=== PATIENT | female | born 1995 | race Caucasian/White ===

== ENCOUNTER 2018-07-07 19:06 | Emergency (ER) | payer OTHER ==
[~2018-07-07] VITALS: Ht 165.1 cm; Wt 58.7 kg
[2018-07-07 19:51] LABS: BASO % 0.5 % (0.0-1.0); HEMATOCRIT 33.3 % (36.0-47.0); HEMOGLOBIN 11.4 g/dl (12.0-15.5); LYMPH % 30.5 % (24.0-44.0); MEAN CORPUSCULAR HEMOGLOBIN 29.4 pg (27.0-33.0); MEAN CORPUSCULAR HGB CONC 34.2 g/dl (32.0-36.5); MEAN CORPUSCULAR VOLUME 85.8 fl (80.0-96.0); MONO # 0.6 10^3/uL (0.0-0.8); MONO % 8.6 % (0.0-5.0); NEUTROPHILS # 3.8 10^3/uL (1.8-7.7); NEUTROPHILS % 60.1 % (36.0-66.0); PLATELET COUNT, AUTOMATED 281 10^3/uL (150-450); RED BLOOD COUNT 3.88 10^6/uL (4.00-5.40); WHITE BLOOD COUNT 6.4 10^3/uL (4.0-10.0)
--- NOTE | 2018-07-07 20:32 | REP ---
Clinical: Dating and viability. Technique: Transabdominal first trimester obstetrical ultrasound with color Doppler evaluation Findings: Single live early intrauterine is appreciated. Gestational sac with yolk sac and pole identified. [place]-rump length of 3.3 cm corresponds to 10 weeks 1 day gestational age with estimated date of delivery 02/01/2019 . heart rate equals 182 beats per minute. A large subchorionic hemorrhage is identified measuring approximately 7.8 x 6.3 x 2.4 cm Maternal ovaries are normal and 1.7 cm right corpus luteal cyst is identified. Impression: 1. Single live early intrauterine at 10 weeks 1 day gestational age. Complete anatomical assessment should be performed and 19-20 weeks. 2. Large subchorionic hemorrhage noted. Electronically Signed by Rome Wilson MD 07/07/2018 08:23 P
[2018-07-07] MEDS ORDERED: RHOGAM 300 MCG (1500 IU) INJ (J2790) IM ONE (21:00)
[2018-07-07 21:23] VITALS: BP 102/51
[2018-07-07 22:13] LABS: CHLAMYDIA DNA AMPLIFICATION NEGATIVE (NEGATIVE); GC DNA AMPLIFICATION NEGATIVE (NEGATIVE)
== END 2018-07-07 22:43 | disposition home or self-care (01) ==
LOC: M ED 19:06
DX: O20.0 Threatened abortion (principal); O20.8 Other hemorrhage in early pregnancy; Z72.0 Tobacco use; Z3A.10 10 weeks gestation of pregnancy
CPT/HCPCS: 36415; 76801; 81001; 84702; 85025; 85460; 86850; 86900; 86901; 87210; 87491; 87591; 96372; 99284; J2790

== ENCOUNTER 2018-07-08 10:22 | Day surgery (SDC) | payer OTHER ==
[2018-07-08] MEDS ORDERED: NS 1,000 ML IV ONE (10:45)
[2018-07-08 11:08] LABS: BASO % 0.2 % (0.0-1.0); HEMATOCRIT 30.6 % (36.0-47.0); HEMOGLOBIN 10.2 g/dl (12.0-15.5); LYMPH # 2.2 10^3/uL (1.5-6.5); LYMPH % 20.7 % (24.0-44.0); MEAN CORPUSCULAR HEMOGLOBIN 28.5 pg (27.0-33.0); MEAN CORPUSCULAR HGB CONC 33.3 g/dl (32.0-36.5); MEAN CORPUSCULAR VOLUME 85.5 fl (80.0-96.0); MONO # 0.9 10^3/uL (0.0-0.8); MONO % 8.2 % (0.0-5.0); NEUTROPHILS # 7.4 10^3/uL (1.8-7.7); NEUTROPHILS % 70.6 % (36.0-66.0); PLATELET COUNT, AUTOMATED 305 10^3/uL (150-450); RED BLOOD COUNT 3.58 10^6/uL (4.00-5.40); WHITE BLOOD COUNT 10.4 10^3/uL (4.0-10.0)
--- NOTE | 2018-07-08 11:16 | REP ---
Clinical: Vaginal bleeding. Technique: Transabdominal first trimester obstetrical ultrasound with color Doppler evaluation. Comparison: 07/07/2018. Findings: The previously identified viable 10-week fetus is no longer apparent and the endometrial complex is distended with heterogeneous hemorrhagic material consistent with spontaneous in progress. Uterus measures 10.4 x 6.5 x 7.8 cm. Endometrial complex is distended to 4.7 mm. The bilateral ovaries are normal in appearance and vascularity without torsion. Right ovary measures 3.6 x 2.2 x 3.7 cm and includes 2.2 cm corpus luteum. Left ovary measures 1.8 x 1.7 x 1.6 cm. No significant pelvic free fluid. Findings: Findings consistent with spontaneous in progress. Electronically Signed by Rome Wilson MD 07/08/2018 11:08 A
[2018-07-08 11:52] LABS: BLOOD UREA NITROGEN 8 MG/DL (7-18); CALCIUM LEVEL 8.5 MG/DL (8.5-10.1); CARBON DIOXIDE LEVEL 24 MEQ/L (21-32); CHLORIDE LEVEL 106 MEQ/L (98-107); CREATININE FOR GFR 0.62 MG/DL (0.55-1.30); GLOMERULAR FILTRATION RATE > 60.0 (>60); GLUCOSE, FASTING 87 MG/DL (70-100); HCG, SERUM QUANTITATIVE 61626 MIU/ML; POTASSIUM SERUM 3.9 MEQ/L (3.5-5.1); SODIUM LEVEL 139 MEQ/L (136-145)
[2018-07-08] MEDS ORDERED: DOXYCYCLINE HYCLATE 100 MG in D5W MINI-BAG PLUS 100 ML IV ONE (12:15)
[2018-07-08] MEDS ORDERED: DOXYCYCLINE HYCLATE 100 MG/10 ML VIAL As Ordered ONE ×2 (12:24→14:20)
[2018-07-08] MEDS ORDERED: LIDOCAINE 2% INJ 100 MG/5 ML SDV (FOR ANES.) As Ordered ONE (13:46)
[2018-07-08] MEDS ORDERED: PROPOFOL 200 MG/20 ML VIAL As Ordered ONE ×2 (13:46→15:04)
[2018-07-08] MEDS ORDERED: ONDANSETRON 4MG/2ML VIAL (J2405) As Ordered ONE (13:47)
[2018-07-08] MEDS ORDERED: dexameTHASONE 4 MG/ML 1ML VIAL (J1100) As Ordered ONE (13:47)
[2018-07-08] MEDS ORDERED: KETOROLAC 60 MG/2 ML VIAL (J1885) As Ordered ONE (13:47)
[2018-07-08] MEDS ORDERED: MIDAZOLAM INJ 2 MG/2 ML VIAL (J2250) As Ordered ONE (13:48)
[2018-07-08] MEDS ORDERED: fentaNYL 100 MCG/2 ML INJECTION (J3010) As Ordered ONE (13:48)
[2018-07-08] MEDS ORDERED: LIDOCAINE 1% MDV 20ML VIAL As Ordered ONE (14:20)
[2018-07-08] MEDS ORDERED: DOXYCYCLINE HYCLATE 100 MG in D5W MINI-BAG PLUS 100 ML IV SCH (15:00)
[2018-07-08] MEDS ORDERED: fentaNYL 100 MCG/2 ML INJECTION (J3010) IV PRN (16:00)
[2018-07-08] MEDS ORDERED: METOCLOPRAMIDE INJ 10MG/2ML VIAL (J2765) IV PRN (16:00)
[2018-07-08] MEDS ORDERED: LR 1,000 ML IV SCH (16:00)
[2018-07-08] MEDS ORDERED: ONDANSETRON 4MG/2ML VIAL (J2405) IV PRN (16:00)
[2018-07-08] MEDS ORDERED: MEPERIDINE INJ 25 MG/ML VIAL (J2175) IV PRN (16:00)
[2018-07-08] MEDS ORDERED: PERCOCET 5MG/325MG TAB PO PRN ×2 (16:00)
[2018-07-08 16:30] VITALS: BP 104/58
[2018-07-08 17:00] VITALS: BP 100/59
[2018-07-08 17:30] VITALS: BP 129/78
[2018-07-08 18:10] VITALS: BP 120/72
--- NOTE | 2018-07-10 08:06 | RO ---
DATE OF PROCEDURE: 07/08/2018 PREPROCEDURE DIAGNOSIS: Incomplete . POSTPROCEDURE DIAGNOSIS: Incomplete status post suction, dilation and curettage. PROCEDURE: Suction dilation and curettage. SURGEON: Dr. Mitch Segundo. PROFESSOR OF RELIGION: None. ANESTHESIA: Monitored anesthesia care (MAC). FLUIDS: 600 mL lactated Ringers. URINE OUTPUT: 3 mL via straight catheter. ESTIMATED BLOOD LOSS: 50 mL. COMPLICATION: None. ANTIBIOTICS: 100 mg doxycycline before procedure and 200 mg doxycycline after procedure. INDICATION: Buffy is a 23-year-old G4, P2 female at approximately 10 weeks gestation who presented to the emergency room yesterday evening with vaginal bleeding in the setting of . An ultrasound at that time revealed a [id number]-pmcae viable intrauterine , but also a large 7.5 cm subchorionic hemorrhage. She was discharged with return precautions. She presented back to the emergency room this morning with acute hemorrhage and partial passage of products of conception. Upon my examination in the emergency room, she was found to have an incomplete and I was unable to remove the remaining products of conception in the emergency room at the bedside. She was then counseled and consented for suction dilation and curettage and she agreed to proceed. DESCRIPTION OF PROCEDURE: The risks benefits, indications and alternatives to the procedure were reviewed with the patient and informed consent was obtained. The patient was taken to the operating room where IV sedation was obtained without difficulty. The patient was then placed in the lithotomy position using Edy stirrups. An exam under anesthesia was then performed and was significant for a midline mobile 10-week size uterus. The patient was then prepped and draped in the usual sterile fashion. The bladder was drained using and in-and-out catheter. A sterile speculum was placed in the patient's vagina and the cervix was visualized. A paracervical block was then performed using approximately 10 mL of 1% lidocaine plain. A tenaculum was used to grasped the anterior lip of the cervix. No dilation of the cervix was required as it was already dilated. A 9 mm curved suction catheter was then introduced into the uterine cavity and gently advanced the uterine fundus. The suction was then activated to 60 mmHg and the catheter was rotated to clear the uterus of products of conception. Four passes were performed with a moderate amount of tissue obtained. A gentle sharp curettage was then performed until uterine cri was noted in all planes. Two more passes of the suction catheter were then performed and minimal tissue was obtained. All tissue obtained and sent to pathology for review. The tenaculum was then removed from the anterior lip of the cervix and the sites were noted to be hemostatic. All instruments were then removed from the patient's vagina. The patient tolerated the procedure well. A vaginal sweep was performed and confirmed that no retained foreign objects remained in the vagina. At the completion of the case, sponge, instrument and needle counts were correct times two. Patient tolerated the procedure well and was taken to the postanesthesia care unit (PACU) in stable condition. JEROME
== END 2018-07-08 18:40 | disposition home or self-care (01) ==
LOC: M ED 10:22 → EDBD 10:22 → M SDC 11:50 → M PED 16:20 → M SDC 18:40
PROVIDERS: ATTEND Obstetrics & Gynecology
DX: O02.1 Missed abortion (principal); F17.210 Nicotine dependence, cigarettes, uncomplicated
CPT/HCPCS: 59820; 76801; 80048; 84702; 85025; 86850; 86870; 86900; 86901; 88233; 88262; 88291; 88305; 93976; 96361; 96365; 96366; 99285; J1100; J1885; J2250; J2405; J3010

== ENCOUNTER 2018-09-11 13:37 | Inpatient (IN) | payer OTHER ==
[~2018-09-11] VITALS: Ht 165.1 cm; Wt 56.2 kg
[2018-09-11 16:13] LABS: HEMATOCRIT 34.7 % (36.0-47.0); HEMOGLOBIN 10.5 g/dl (12.0-15.5); MEAN CORPUSCULAR HEMOGLOBIN 24.2 pg (27.0-33.0); MEAN CORPUSCULAR HGB CONC 30.3 g/dl (32.0-36.5); PLATELET COUNT, AUTOMATED 292 10^3/uL (150-450); RED BLOOD COUNT 4.34 10^6/uL (4.00-5.40); WHITE BLOOD COUNT 3.7 10^3/uL (4.0-10.0)
[2018-09-11 16:37] LABS: AMPHETAMINES LEVEL URINE NEGATIVE (NEGATIVE); BARBITURATES URINE NEGATIVE (NEGATIVE); BENZODIAZEPINES URINE NEGATIVE (NEGATIVE); CANNABINOIDS URINE NEGATIVE (NEGATIVE); COCAINE METABOLITE URINE NEGATIVE (NEGATIVE); METHADONE URINE NEGATIVE (NEGATIVE); OPIATES URINE NEGATIVE (NEGATIVE); PHENCYCLIDINE URINE NEGATIVE (NEGATIVE)
[2018-09-11 16:45] LABS: HCG, SERUM QUALITATIVE NEGATIVE (NEGATIVE)
[2018-09-11 16:53] LABS: ACETAMINOPHEN LEVEL < 2.0 UG/ML (10.0-30.0); ALBUMIN 4.4 GM/DL (3.2-5.2); ALT/SGPT 18 U/L (12-78); BILIRUBIN,DIRECT 0.1 MG/DL (0.0-0.2); BILIRUBIN,TOTAL 0.2 MG/DL (0.2-1.0); BLOOD UREA NITROGEN 12 MG/DL (7-18); CARBON DIOXIDE LEVEL 27 MEQ/L (21-32); CHLORIDE LEVEL 107 MEQ/L (98-107); ETHYL ALCOHOL (ETHANOL) < 0.003 % (0.000-0.010); GLOMERULAR FILTRATION RATE > 60.0 (>60); GLUCOSE, FASTING 98 MG/DL (70-100); SALICYLATE LEVEL 2.5 MG/DL (5.0-30.0); SODIUM LEVEL 139 MEQ/L (136-145); TOTAL PROTEIN 8.7 GM/DL (6.4-8.2)
[2018-09-11] MEDS ORDERED: MOM 30ML SUSPENSION UDC PO PRN (21:15)
[2018-09-11] MEDS ORDERED: ACETAMINOPHEN TAB 650MG DOSE (2X325MG) PO PRN (21:15)
[2018-09-11] MEDS ORDERED: MAALOX 30 ML SUSP *UDC PO PRN (21:15)
[2018-09-11 23:56] VITALS: BP 134/70
[2018-09-12] MEDS ORDERED: SERTRALINE HCL 25 MG TABLET PO ONE (13:00)
--- NOTE | 2018-09-12 13:13 | HPEPDOC ---
General Date of Admission Sep 11, 2018 at 21:07 Date of Service: Sep 12, 2018 Attending Physician: RONNIE BENITEZ MD Chief Complaint The patient is a 23-year-old female admitted with a reason for visit of Unspecified Depressive Disorder. History of Present Illness Natalie Baer is a 23-year-old female referred to the emergency room after patient presented to the clinic requesting admission to mental health. Patient expressed suicidal ideation with no specific plan. Due to some ongoing marital problems with spouse. On assessment, she complains of chest pain which started yesterday and she attributes to anxiety. Describes as intermittent, worsened whenever she is feeling anxious, denies shortness of breath. She also complains of back pain and abdominal pain. She is on her monthly menstrual period She denies chills, fever, nausea, vomiting, diarrhea, constipation. Home Medications No Active Prescriptions or Reported Meds Allergies Coded Allergies: lavender (Lavandula angustifolia) (Verified Allergy, Unknown, hives, 07/08/18) Past Medical History Medical History Anemia Anxiety Surgical History D&C Family History Significant Family History: No pertinent family hx Social History Denies tobacco, occasional alcohol use, denies polysubstance abuse A-FIB/CHADSVASC A-FIB History Current/History of A-Fib/PAF?: No Current PO Anticoag Therapy: No Review of Systems Other systems A pertinent 10 point review of systems is completed, negative except as stated in the history of presenting illness Physical Examination Other physical findings GENERAL: NAD SKIN : Warm, dry intact HEENT: Atraumatic, normocephalic, PERRL, moist mucous membrane CARDIOVASCULAR: Regular rate and rhythm, S1S2, no JVD, no edema, distal pulses + palpable RESP: CTAB, no accessory muscle use noted ABDOMEN: BS+ non distended +tender MS: no joint deformities NEURO: Alert and oriented x 3, CN2-12 grossly intact PSYCH: no anxiety or agitation, appropriate mood and affect. Vital Signs Vital Signs Date Time Temp Pulse Resp B/P (MAP) Pulse Ox O2 Delivery O2 Flow Rate FiO2 09/11/18 23:56 97.2 88 16 134/70 (91) 09/11/18 22:58 100 Room Air Laboratory Data Labs 24H Laboratory Tests 2 09/11/18 15:32: Anion Gap 5L, Glomerular Filtration Rate > 60.0, Calcium Level 10.0, Aspartate Amino Transf (AST/SGOT) 12, Alanine Aminotransferase (ALT/SGPT) 18, Alkaline Phosphatase 70, Total Bilirubin 0.2, Direct Bilirubin 0.1, Total Protein 8.7H, Albumin 4.4, Albumin/Globulin Ratio 1.02, Thyroid Stimulating Hormone (TSH) 2.840, Human Chorionic Gonadotropin, Qual NEGATIVE, Salicylates Level 2.5L, Urine Amphetamines Screen NEGATIVE, Urine Benzodiazepines Screen NEGATIVE, Urine Opiates Screen NEGATIVE, Urine Methadone Screen NEGATIVE, Acetaminophen Level < 2.0L, Urine Barbiturates Screen NEGATIVE, Urine Phencyclidine Screen NEGATIVE, Urine Cocaine Metabolite Screen NEGATIVE, Urine Cannabinoids Screen NEGATIVE, Ethyl Alcohol Level < 0.003 CBC/BMP Laboratory Tests 09/11/18 15:32 Assessment/Plan Anemia -Chronic for patient -Stable Chest pain with anxiety -Patient states chest pain is due to anxiety -Check cardiac biomarkers, 12-lead EKG, chest x-ray -Reevaluate with findings Suicidal ideation -Evaluation and management per primary team Plan / VTE VTE Prophylaxis Ordered?: No VTE Exclusion Mechanical Proph: Low Risk for VTE SINDY GARCIAP Sep 12, 2018 13:13
--- NOTE | 2018-09-12 17:16 | MHHPEPDOC ---
[facility] History & Physical History and Physical DATE OF ADMISSION: Sep 11, 2018 at 21:07 Date of Service: 09/12/2018 Chief Complaint "I hate people." History of Present Illness The patient a 23 year old woman with a history of depression and possible antisocial traits presents to [facility] on her own volition stating that she is suicidal. 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 She recently had a miscarriage in July and her depression worsened. She only received one week of time with her after the miscarriage and did not adapt well. She was prescribed sertraline at that time, but neglected to take it after she left the hospital. The patient when met with describes irritability, low mood, hopelessness, suicidal thoughts, concentration/focus problems, fatigue and an inability to tend to her needs. Review Of Systems Depression: As above Anxiety: The patient denies any excessive worry associated with physical symptoms. They deny any experience of discreet panic in the past. Bonny: The patient denies any episodes of euphoria/dysphoria associated with decreased need for sleep, hedonism, talkatively or impulsivity lasting longer than 5 days. Psychotic: The patient denies any experiences of auditory or visual hallucinations. They deny any episodes of paranoia or delusional thinking in the past Trauma: The patient denies any traumatic events associated with nightmares or intrusive thoughts. Borderline: Positive screen for borderline antisocial traits. Past Psychiatric History Patient has a history of one admission five years ago in the [facility] for a suicide attempt. Only been tried on sertraline. No other diagnosis or treatment. No current out-patient. Allergies Please see below. Family Psychiatric History The patient denies/is unaware any history of mental health history including addictions and suicide. Social History Patient grew up in the [place], [place]. She reported a fairly chaotic family life where she was raised by her mother. She notably had difficulties with her brother and although denies specific abuse. She graduated high school after a fairly turbulent childhood where she was in and out of juvenile half-way for fighting and assault. She additionally then met her who she's known for several years and they got recently , and he deployed. She currently lives alone. They have one child together of which she finds difficult to take care of. She currently does not work and subsist on income from her . She describes she currently cannot drive which is a significant stressor due to not having a license. Reports no recent legal trouble. Substance Abuse History The patient denies any excessive alcohol use, tobacco or illicit drug use, denies history of substance use treatment. Medical History Patient has no significant past medical history. Mental Status Examination General: Well dressed with good hygiene Speech: Spontaneous and fluid Thought processes: Linear and logical MSK: Smooth and coordinated gait, no signs of tremors or involuntary orofacial movements Thought content: Preoccupation with hopelessness and pessimism Abstract reasoning, and computation: Intact Description of associations: Intact Description of abnormal or psychotic thoughts: Admits to suicidal thoughts, but denies any homicidal thoughts. Denies any auditory or visual hallucinations. Does not appear to be responding to internal stimuli. Does not appear to be endorsing any bizarre or paranoid ideation. Judgment: Limited insight Insight: fair Orientation: Alert and orientated 3 Cognition: Grossly normal Recent and remote memory: Intact Attention span and concentration: Intact Fund of knowledge: Adequate Mood: "fine" Affect: Mildly irritable Diagnoses Unspecified depressive disorder. Rule out adjustment versus MDD. Unspecified personality disorder. Rule out borderline versus antisocial. Assessment and Plan The patient a 23 year old woman with a history of depression and likely antisocial borderline traits presents with suicidal thoughts not connected to mental health. She reportedly wanted to come in for admission and has been admitted. She does appear generally demanding on the unit and asked specifically of whether her should be returned to support her. Although the recommendation is this would be ideal as a patient appears to be unlikely to support herself. She does appear to be very demanding and manipulative at times. Disposition Patient will need an in-patient admission likely longer than 2 midnight's in order to stabilize her suicidal thoughts and depression. Problem List 1. Risk for suicide 2. Depression 3. Ineffective coping Initial Treatment Plan 1. Patient was admitted on a 9.39 legal status. 2. Complete history was obtained. 3. With patients permission, family will be contacted and database will be expanded. 4. Patients medication regimen will be reviewed and changed accordingly. 5. Patient will be provided with protected environment. 6. Patient will be treated with individual, group, and milieu therapies. 7. Patient will receive supportive psych-education. 8. Discharge planning will commence immediately. 9. Outpatient follow-up treatment will be strongly recommended. 10. The initial treatment plan will focus initially on sertraline 25 mg daily. Discussed risk, benefits of sertraline and possible side effects. Estimated Length Of Stay Four days. Time Spent 45 minutes. Tuesday Vital Signs Vital Signs Date Time Temp Pulse Resp B/P (MAP) Pulse Ox O2 Delivery O2 Flow Rate FiO2 09/11/18 23:56 97.2 88 16 134/70 (91) 09/11/18 22:58 100 Room Air Laboratory Data 24H Labs Laboratory Tests 2 09/12/18 13:32: Troponin I < 0.02 Medications No Active Prescriptions or Reported Meds Allergies Coded Allergies: lavender (Lavandula angustifolia) (Verified Allergy, Unknown, hives, 07/08/18) ALEX CARBAJAL DO Sep 12, 2018 17:16
[2018-09-12 18:00] VITALS: BP 102/70
--- NOTE | 2018-09-12 19:52 | REP ---
CHEST: Two views. There is no evidence of acute infiltrate. No pleural effusion is seen. The heart is normal in size. The mediastinal silhouette is unremarkable. The visualized osseous structures are intact. IMPRESSION: No acute pulmonary disease. Electronically Signed by Tristin Ball MD 09/14/2018 12:08 A
[2018-09-12] MEDS: traZODone 50 MG TAB PO PRN (21:42)
[2018-09-13 06:30] VITALS: BP 104/54
--- NOTE | 2018-09-13 08:54 | IPNPDOC ---
Text Note Date of Service The patient was seen on 09/13/18. NOTE Subjective: denies chest pain today. Test results discussed with her. Objective GENERAL: NAD SKIN : Warm, dry intact HEENT: Atraumatic, normocephalic, PERRL, moist mucous membrane CARDIOVASCULAR: Regular rate and rhythm, S1S2, no JVD, no edema, distal pulses + palpable RESP: CTAB, no accessory muscle use noted ABDOMEN: BS+ non distended +tender MS: no joint deformities NEURO: Alert and oriented x 3, CN2-12 grossly intact PSYCH: no anxiety or agitation, appropriate mood and affect. Assessment/Plan Anemia -Chronic for patient -Stable Chest pain with anxiety -chest pain likely due to anxiety based on resolution of symptoms with treatment of anxiety -findings discussed with her -will start on short term PPI Suicidal ideation -Evaluation and management per primary team VS,Octavia, I+O VS, Octavia, I+O Vital Signs Date Time Temp Pulse Resp B/P (MAP) Pulse Ox O2 Delivery O2 Flow Rate FiO2 09/13/18 06:30 98.5 48 12 104/54 (71) 09/11/18 22:58 100 Room Air SINDY GARICA Sep 13, 2018 08:54
[2018-09-13] MEDS ORDERED: SERTRALINE HCL 25 MG TABLET PO SCH (09:00)
[2018-09-13] MEDS: PANTOPRAZOLE 40MG TAB (PROTONIX) PO SCH (09:00)
--- NOTE | 2018-09-13 10:50 | MHIPNPDOC ---
[facility] Progress Note Progress Note Date of Service: 09/13/2018 History of Present Illness The patient a 23 year old woman with a history of depression and possible antisocial traits presents to [facility] on her own volition stating that she is suicidal. 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 She recently had a miscarriage in July and her depression worsened. She only received one week of time with her after the miscarriage and did not adapt well. She was prescribed sertraline at that time, but neglected to take it after she left the hospital. Interval History The patient is met with today. 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 She describes her mood is improving and her eating and sleeping have begun to normalize on the unit secondary to a more supportive environment. She describes being upset and meets with this provider for a second time feeling upset that the is ambivalent about bringing her back from deployment in order to be supportive for her. Staff noted no major problems other than at times she can be somewhat petulant but no behavior outburst are noted overnight. She reports that she feels ready to return home tomorrow as she is worried about her daughter and has been unable to connect with her current sitter. Review Of Systems Denies any side effects such as GI effects, tremors, headaches, or other problems related to medications. Reports improved mood, improved sleep, improved appetite and better motivation. Psychotherapy None on this visit. Vital Signs Reviewed. Mental Status Examination General: Well dressed with good hygiene Speech: Spontaneous and fluid Thought processes: Linear and logical MSK: Smooth and coordinated gait, no signs of tremors or involuntary orofacial movements Thought content: Being upset with . Abstract reasoning, and computation: Intact Description of associations: Intact Description of abnormal or psychotic thoughts: Denies suicidal thoughts at this time, but denies any homicidal thoughts. Denies any auditory or visual hallucinations. Does not appear to be responding to internal stimuli. Does not appear to be endorsing any bizarre or paranoid ideation. Judgment: Chronically limited. Insight: Fair. Orientation: Alert and orientated 3 Cognition: Grossly normal Recent and remote memory: Intact Attention span and concentration: Intact Fund of knowledge: Adequate Mood: "fine" Affect: Euthymic. Diagnoses Unspecified depressive disorder. Rule out adjustment versus MDD. Unspecified personality disorder. Rule out borderline versus antisocial. Assessment and Plan The patient will be increased to 50 mg of sertraline with a discharge tomorrow. She makes significant improvement with the supportive environment. She would do well with her being supportive of her as she generally has poor coping skills as an outpatient. However, the will need to make their own choice regarding this. Disposition Discharged tomorrow. Time Spent 15 minutes [id number]. Tuesday Vital Signs Vital Signs Date Time Temp Pulse Resp B/P (MAP) Pulse Ox O2 Delivery O2 Flow Rate FiO2 09/13/18 06:30 98.5 48 12 104/54 (71) 09/11/18 22:58 100 Room Air Laboratory Data 24H Labs Laboratory Tests 2 09/12/18 13:32: Troponin I < 0.02 Current Medications Current Medications Medications (Trade) Dose Ordered Sig/Yue Route PRN Reason Start Time Stop Time Status Last Admin Dose Admin Acetaminophen (Tylenol Tab) 650 mg Q6HP PRN PO HEADACHE or DISCOMFORT 09/11/18 21:15 Al Hydrox/Mg Hydrox/Simethicone (Mylanta) 30 ml Q4HP PRN PO HEARTBURN/INDIGESTION 09/11/18 21:15 Home Med (Med Rec Complete!) ASDIRECTED XX 09/11/18 17:30 09/11/18 17:30 DC Magnesium Hydroxide (Milk Of Magnesia) 30 ml DAILYPRN PRN PO CONSTIPATION 09/11/18 21:15 Pantoprazole Sodium (Protonix) 40 mg DAILY PO 09/13/18 09:00 Sertraline HCl (Zoloft) 25 mg DAILY PO 09/13/18 09:00 09/13/18 08:44 Trazodone HCl (Desyrel) 50 mg QHSP PRN PO INSOMNIA 09/11/18 21:15 09/12/18 21:42 Allergies Coded Allergies: lavender (Lavandula angustifolia) (Verified Allergy, Unknown, hives, 07/08/18) ALEX CARBAJAL DO Sep 13, 2018 10:50
[2018-09-13 18:00] VITALS: BP 102/58
[2018-09-13] MEDS: traZODone 50 MG TAB PO PRN (20:39)
[2018-09-14 06:18] VITALS: BP 98/57
--- NOTE | 2018-09-14 08:29 | ECGEPIP ---
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
[2018-09-14] MEDS ORDERED: SERTRALINE HCL 50 MG TAB PO SCH (09:00)
[2018-09-14] MEDS: PANTOPRAZOLE 40MG TAB (PROTONIX) PO SCH (09:05)
[2018-09-14] MEDS ORDERED: SERT-155 PO (10:51)
--- NOTE | 2018-09-14 11:34 | MHDSPDOC ---
[facility] Discharge Summary Discharge Summary DATE OF ADMISSION: Sep 11, 2018 at 21:07 DATE OF DISCHARGE: 09/14/18 Discharge Buffy Estrada MRN: N/[id number] Date of : N/A Date of Service: 09/14/2018 Diagnoses Unspecified depressive disorder. Rule out adjustment versus MDD. Unspecified personality disorder. Rule out borderline versus antisocial. History of Present Illness The patient a 23 year old woman with a history of depression and possible antisocial traits presents to [facility] on her own volition stating that she is suicidal. 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 She recently had a miscarriage in July and her depression worsened. She only received one week of time with her after the miscarriage and did not adapt well. She was prescribed sertraline at that time, but neglected to take it after she left the hospital. Consultants Involved Hospitalist/PCP screening Treatment and Progress On The Unit The patient was admitted to the unit where she was initially noted to be really depressed. She was started on sertraline 25 mg daily and she had been prescribed that previously but had not followed up with the prescription after her recent miscarriage. The patient at times was petulant and demanding on the unit regarding wanting her to return home. After discussing with the patient that it would be this provider's recommendation that the patient be supported while outpatient and that her being home is likely a positive thing for her. The patient struggled with the higher chain of command deciding whether they would allow her to return home and remain off deployment. The patient was increased to 50 mg of sertraline with positive effects. She noted that she had less insomnia, better appetite and improved mood. She at times was demanding and was given a letter at this provider's recommendation that her be allowed to be home to support her. However, after she had left the unit, she did request a different letter with specifics listing for recommendations, however, the patient will be informed that the recommendations are secondary to the chain of command's decision. The patient stopped endorsing any suicidal ideation for 24 hours prior to her discharge and had requested to go home and at that time did not meet involuntary criteria for further inpatient admission and thus additionally declined a further voluntary admission. She was discharged in good earl. Discharge Assessment A 23-year-old woman with depression and likely antisocial personality traits, presents to [facility] in what appears to be an adjustment disorder. She does appear during the admission to heavily focus on attempting to get documentation in order to have her return home, although it is this provider's opinion that she would do well with better support. Her consistent attempts to get increasingly more complex and specific recommendations appeared to likely suggest some secondary gain, thus fun limits were set. Mental Status Examination General: Well dressed with good hygiene Speech: Spontaneous and fluid Thought processes: Linear and logical MSK: Smooth and coordinated gait, no signs of tremors or involuntary orofacial movements Thought content: Future orientated Abstract reasoning, and computation: Intact Description of associations: Intact Description of abnormal or psychotic thoughts: Denies any suicidal or homicidal ideation. Denies any auditory or visual hallucinations. Does not appear to be responding to internal stimuli. Does not appear to be endorsing any bizarre or paranoid ideation. Judgment: fair Insight: fair Orientation: Alert and orientated 3 Cognition: Grossly normal Recent and remote memory: Intact Attention span and concentration: Intact Fund of knowledge: Adequate Mood: "okay" Affect: Euthymic with a full range Follow Up The social work team worked during the predischarge meeting in order to evaluate for further issues of lethality address them fully before discharge. They worked on safety planning with the patient's family members in order to ensure that the patient will have a safe and effective discharge. Time Spent The amount of time spent in the coordination of care for this patient was approximately 30 minutes. Vital Signs/I&Os Vital Signs Date Time Temp Pulse Resp B/P (MAP) Pulse Ox O2 Delivery O2 Flow Rate FiO2 09/14/18 06:18 97.9 58 14 98/57 (71) 09/11/18 22:58 100 Room Air Medications Scheduled Sertraline HCl (Sertraline HCl) 50 Mg Tablet, 50 MG PO DAILY for mood for 7 Days, #7 Allergies Coded Allergies: lavender (Lavandula angustifolia) (Verified Allergy, Unknown, hives, 07/08/18) ALEX CARBAJAL DO Sep 14, 2018 11:34
== END 2018-09-14 11:54 | disposition home or self-care (01) | DRG 881 ==
LOC: M ED 13:37 → M ED INP 21:07 → M PSY 23:17
PROVIDERS: ADMIT Psychiatry & Neurology Addiction Medicine; ATTEND Psychiatry & Neurology Addiction Medicine
DX: F32.9 Major depressive disorder, single episode, unspecified (principal); F60.3 Borderline personality disorder; D64.9 Anemia, unspecified; F60.2 Antisocial personality disorder; Z91.048 Other nonmedicinal substance allergy status; Z63.31 Absence of family member due to military deployment

== ENCOUNTER 2018-10-15 06:10 | Emergency (ER) | payer OTHER ==
[~2018-10-15] VITALS: Ht 165.1 cm; Wt 59.0 kg
[~2018-10-15 06:10] MED LIST: SERT-155 PO
[2018-10-15 06:44] LABS: HEMATOCRIT 33.5 % (36.0-47.0); HEMOGLOBIN 10.2 g/dl (12.0-15.5); MEAN CORPUSCULAR HEMOGLOBIN 23.3 pg (27.0-33.0); MEAN CORPUSCULAR HGB CONC 30.4 g/dl (32.0-36.5); MEAN CORPUSCULAR VOLUME 76.7 fl (80.0-96.0); PLATELET COUNT, AUTOMATED 325 10^3/uL (150-450); RED BLOOD COUNT 4.37 10^6/uL (4.00-5.40); WHITE BLOOD COUNT 6.5 10^3/uL (4.0-10.0)
[2018-10-15 07:14] LABS: HCG, SERUM QUALITATIVE NEGATIVE (NEGATIVE)
[2018-10-15 07:22] LABS: ACETAMINOPHEN LEVEL < 2.0 UG/ML (10.0-30.0); ALT/SGPT 28 U/L (12-78); BILIRUBIN,DIRECT < 0.1 MG/DL (0.0-0.2); BILIRUBIN,TOTAL 0.1 MG/DL (0.2-1.0); BLOOD UREA NITROGEN 9 MG/DL (7-18); CALCIUM LEVEL 8.5 MG/DL (8.5-10.1); CARBON DIOXIDE LEVEL 21 MEQ/L (21-32); CHLORIDE LEVEL 110 MEQ/L (98-107); CREATININE FOR GFR 0.85 MG/DL (0.55-1.30); GLOMERULAR FILTRATION RATE > 60.0 (>60); GLUCOSE, FASTING 89 MG/DL (70-100); POTASSIUM SERUM 3.9 MEQ/L (3.5-5.1); SALICYLATE LEVEL 3.7 MG/DL (5.0-30.0); SODIUM LEVEL 142 MEQ/L (136-145); TOTAL PROTEIN 8.3 GM/DL (6.4-8.2)
[2018-10-15 09:35] LABS: AMPHETAMINES LEVEL URINE NEGATIVE (NEGATIVE); BARBITURATES URINE NEGATIVE (NEGATIVE); BENZODIAZEPINES URINE NEGATIVE (NEGATIVE); CANNABINOIDS URINE NEGATIVE (NEGATIVE); COCAINE METABOLITE URINE NEGATIVE (NEGATIVE); METHADONE URINE NEGATIVE (NEGATIVE); OPIATES URINE NEGATIVE (NEGATIVE); PHENCYCLIDINE URINE NEGATIVE (NEGATIVE)
--- NOTE | 2018-10-15 20:38 | ECGEPIP ---
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
[2018-10-15] MEDS ORDERED: HALOPERIDOL 5 MG/ML VIAL (J1630) IM ONE (23:30)
[2018-10-15] MEDS ORDERED: diphenhydrAMINE INJ 50MG/ML VIAL (J1200) IM ONE (23:30)
[2018-10-16 05:53] VITALS: BP 112/78
== END 2018-10-16 05:57 | disposition short-term general hospital (02) ==
LOC: M ED 06:10
DX: F10.10 Alcohol abuse, uncomplicated (principal); Z60.0 Problems of adjustment to life-cycle transitions; J45.909 Unspecified asthma, uncomplicated; F33.9 Major depressive disorder, recurrent, unspecified; F41.9 Anxiety disorder, unspecified; Z91.048 Other nonmedicinal substance allergy status; F17.210 Nicotine dependence, cigarettes, uncomplicated
CPT/HCPCS: 36415; 80048; 80076; 80307; 84443; 84703; 85027; 93005; 96372; 99285; G0480

== ENCOUNTER 2018-10-22 05:42 | Inpatient (IN) | payer OTHER ==
[~2018-10-22] VITALS: Ht 165.1 cm; Wt 59.8 kg
[2018-10-22 06:17] LABS: HEMATOCRIT 34.9 % (36.0-47.0); HEMOGLOBIN 10.9 g/dl (12.0-15.5); MEAN CORPUSCULAR HEMOGLOBIN 23.5 pg (27.0-33.0); MEAN CORPUSCULAR HGB CONC 31.2 g/dl (32.0-36.5); MEAN CORPUSCULAR VOLUME 75.4 fl (80.0-96.0); PLATELET COUNT, AUTOMATED 285 10^3/uL (150-450); RED BLOOD COUNT 4.63 10^6/uL (4.00-5.40); WHITE BLOOD COUNT 7.3 10^3/uL (4.0-10.0)
[2018-10-22] MEDS ORDERED: diphenhydrAMINE INJ 50MG/ML VIAL (J1200) As Ordered ONE (06:22)
[2018-10-22] MEDS ORDERED: LORazepam 2 MG/ML VIAL (J2060) As Ordered ONE (06:22)
[2018-10-22] MEDS ORDERED: HALOPERIDOL 5 MG/ML VIAL (J1630) As Ordered ONE (06:23)
[2018-10-22 06:43] LABS: HCG, SERUM QUALITATIVE NEGATIVE (NEGATIVE)
[2018-10-22 06:55] LABS: ACETAMINOPHEN LEVEL < 2.0 UG/ML (10.0-30.0); ALBUMIN 4.2 GM/DL (3.2-5.2); ALT/SGPT 26 U/L (12-78); BILIRUBIN,DIRECT < 0.1 MG/DL (0.0-0.2); BILIRUBIN,TOTAL 0.2 MG/DL (0.2-1.0); BLOOD UREA NITROGEN 12 MG/DL (7-18); CALCIUM LEVEL 8.7 MG/DL (8.5-10.1); CARBON DIOXIDE LEVEL 23 MEQ/L (21-32); CHLORIDE LEVEL 113 MEQ/L (98-107); CREATININE FOR GFR 0.88 MG/DL (0.55-1.30); ETHYL ALCOHOL (ETHANOL) 0.282 % (0.000-0.010); GLOMERULAR FILTRATION RATE > 60.0 (>60); GLUCOSE, FASTING 85 MG/DL (70-100); SALICYLATE LEVEL 3.8 MG/DL (5.0-30.0); SODIUM LEVEL 145 MEQ/L (136-145); TOTAL PROTEIN 8.2 GM/DL (6.4-8.2)
[2018-10-22] MEDS ORDERED: HYDR50CA2 PO (07:50)
[2018-10-22] MEDS ORDERED: REME15TA PO (07:50)
[2018-10-22] MEDS ORDERED: TRAZ-252 PO (07:50)
[2018-10-22 14:22] LABS: AMPHETAMINES LEVEL URINE NEGATIVE (NEGATIVE); BARBITURATES URINE NEGATIVE (NEGATIVE); BENZODIAZEPINES URINE NEGATIVE (NEGATIVE); CANNABINOIDS URINE NEGATIVE (NEGATIVE); COCAINE METABOLITE URINE NEGATIVE (NEGATIVE); METHADONE URINE NEGATIVE (NEGATIVE); OPIATES URINE NEGATIVE (NEGATIVE); PHENCYCLIDINE URINE NEGATIVE (NEGATIVE)
[2018-10-22] MEDS ORDERED: hydrOXYzine 50 MG TAB PO STA (19:26)
[2018-10-22] MEDS ORDERED: traZODone 50 MG TAB PO ONE (19:30)
[2018-10-22] MEDS ORDERED: MIRTAZAPINE 15 MG TAB PO ONE (19:40)
[2018-10-23] MEDS ORDERED: traZODone 50 MG TAB PO PRN (13:15)
[2018-10-23] MEDS ORDERED: MAALOX 30 ML SUSP *UDC PO PRN (13:15)
[2018-10-23] MEDS ORDERED: ACETAMINOPHEN TAB 650MG DOSE (2X325MG) PO PRN (13:15)
[2018-10-23] MEDS ORDERED: MOM 30ML SUSPENSION UDC PO PRN (13:15)
[2018-10-23 14:25] VITALS: BP 115/65
[2018-10-23] MEDS ORDERED: LORazepam 2 MG TAB PO PRN (15:30)
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
[2018-10-23 17:10] VITALS: BP 126/78
[2018-10-23] MEDS: FERROUS SULFATE 325MG TAB PO SCH ×2 (17:16→21:00)
[2018-10-23] MEDS: THIAMINE 100 MG TAB PO SCH (17:16)
[2018-10-23] MEDS: FOLIC ACID 1 MG TAB PO SCH (17:16)
[2018-10-23] MEDS: MULTIVITAMINS/MINERALS THERAP 1 TAB PO SCH (17:16)
[2018-10-23] MEDS ORDERED: MIRTAZAPINE 15 MG TAB PO ONE (23:15)
--- NOTE | 2018-10-24 04:22 | ECGEPIP ---
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
[2018-10-24 07:03] VITALS: BP 115/54
[2018-10-24] MEDS: FOLIC ACID 1 MG TAB PO SCH (08:23)
[2018-10-24] MEDS: FERROUS SULFATE 325MG TAB PO SCH (08:23)
[2018-10-24] MEDS: MULTIVITAMINS/MINERALS THERAP 1 TAB PO SCH (08:23)
[2018-10-24] MEDS: THIAMINE 100 MG TAB PO SCH (08:23)
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
[2018-10-24 11:33] VITALS: BP 113/72
[2018-10-24] MEDS ORDERED: NICO21DI37 TOP (12:24)
--- NOTE | 2018-11-08 12:55 | MHDSPDOC ---
[facility] Discharge Summary Discharge Summary DATE OF ADMISSION: Oct 23, 2018 at 13:09 DATE OF DISCHARGE: Oct 24, 2018 at 14:23 DISCHARGE DIAGNOSES: Unspecified depressive disorder. Likely Alcohol related Unspecified personality disorder. Rule out borderline versus antisocial. Alcohol use disorder, severe. Patient was a same day discharge, please refer to h/p for presentation, clinical course and outpatient plans Medications Scheduled Hydroxyzine Pamoate (Hydroxyzine Pamoate) 50 Mg Capsule, 50 MG PO QHS, (Reported) Metoclopramide Hcl (Reglan) 5 Mg Tablet, 5 MG PO ACHS, #20 Mirtazapine (Remeron) 15 Mg Tablet, 15 MG PO QHS, (Reported) Trazodone HCl (Trazodone HCl) 50 Mg Tablet, 50 MG PO QHS, (Reported) Scheduled PRN Dicyclomine HCl (Dicyclomine HCl) 10 Mg Capsule, 10 MG PO Q6HP PRN for irritable bowel symptoms for 25 Days, #100 Allergies Coded Allergies: lavender (Lavandula angustifolia) (Verified Allergy, Unknown, hives, 07/08/18) ALEX CARBAJAL DO Nov 08, 2018 12:55
== END 2018-10-24 14:23 | disposition home or self-care (01) | DRG 881 ==
LOC: M ED 05:42 → M ED INP 10-23 13:09 → M PSY 10-23 14:19
PROVIDERS: ADMIT Psychiatry & Neurology Psychiatry; ATTEND Psychiatry & Neurology Addiction Medicine
DX: F32.9 Major depressive disorder, single episode, unspecified (principal); F10.24 Alcohol dependence with alcohol-induced mood disorder; F60.2 Antisocial personality disorder; F60.3 Borderline personality disorder; Z79.899 Other long term (current) drug therapy; Z88.8 Allergy status to other drugs, medicaments and biological substances; F41.8 Other specified anxiety disorders; F17.200 Nicotine dependence, unspecified, uncomplicated; D50.9 Iron deficiency anemia, unspecified

== ENCOUNTER 2018-11-05 19:54 | Emergency (ER) | payer OTHER ==
[~2018-11-05] VITALS: Ht 167.6 cm; Wt 59.1 kg
[~2018-11-05 19:54] MED LIST changes: +HYDR50CA2 PO; +NICO21DI37 TOP; +REME15TA PO; +TRAZ-252 PO
[2018-11-05] MEDS ORDERED: NS 1,000 ML IV ONE (21:00)
[2018-11-05] MEDS ORDERED: KETOROLAC 30 MG/ML VIAL (J1885) IV ONE (21:00)
[2018-11-05] MEDS ORDERED: ONDANSETRON 4MG/2ML VIAL (J2405) IV ONE (21:00)
[2018-11-05 21:18] LABS: BASO % 0.1 % (0.0-1.0); HEMATOCRIT 33.3 % (36.0-47.0); HEMOGLOBIN 10.5 g/dl (12.0-15.5); LYMPH # 1.5 10^3/uL (1.5-5.0); MEAN CORPUSCULAR HEMOGLOBIN 24.4 pg (27.0-33.0); MEAN CORPUSCULAR HGB CONC 31.5 g/dl (32.0-36.5); MEAN CORPUSCULAR VOLUME 77.3 fl (80.0-96.0); MONO # 0.7 10^3/uL (0.0-0.8); MONO % 10.3 % (0.0-5.0); NEUTROPHILS # 4.5 10^3/uL (1.5-8.5); NEUTROPHILS % 67.5 % (36.0-66.0); PLATELET COUNT, AUTOMATED 341 10^3/uL (150-450); RED BLOOD COUNT 4.31 10^6/uL (4.00-5.40); WHITE BLOOD COUNT 6.7 10^3/uL (4.0-10.0)
[2018-11-05] MEDS ORDERED: ISOVUE-370 76% 100ML VIAL (Q9967) As Ordered ONE (21:35)
[2018-11-05 21:53] LABS: ALBUMIN 3.5 GM/DL (3.2-5.2); ALT/SGPT 25 U/L (12-78); BILIRUBIN,DIRECT < 0.1 MG/DL (0.0-0.2); BILIRUBIN,TOTAL 0.4 MG/DL (0.2-1.0); BLOOD UREA NITROGEN 11 MG/DL (7-18); CALCIUM LEVEL 8.8 MG/DL (8.5-10.1); CARBON DIOXIDE LEVEL 28 MEQ/L (21-32); CHLORIDE LEVEL 108 MEQ/L (98-107); CREATININE FOR GFR 0.82 MG/DL (0.55-1.30); GLOMERULAR FILTRATION RATE > 60.0 (>60); GLUCOSE, FASTING 60 MG/DL (70-100); LIPASE 76 U/L (73-393); POTASSIUM SERUM 5.3 MEQ/L (3.5-5.1); SODIUM LEVEL 139 MEQ/L (136-145); TOTAL PROTEIN 8.2 GM/DL (6.4-8.2)
--- NOTE | 2018-11-05 22:49 | REPVR ---
PROCEDURE INFORMATION: Exam: CT Abdomen and pelvis with contrast Exam date and time: 11/05/2018 9:43 PM Clinical history: 23 years old, female; Abdominal pain; Additional info: Lower abd pain TECHNIQUE: Imaging protocol: Computed tomography of the abdomen and pelvis with intravenous contrast. Radiation optimization: All CT scans at this facility use at least one of these dose optimization techniques: automated exposure control; mA and/or kV adjustment per patient size (includes targeted exams where dose is matched to clinical indication); or iterative reconstruction. Contrast material: ISO 370; Contrast volume: 100 ml; Contrast route: IV; COMPARISON: No relevant prior studies available. FINDINGS: Liver: The liver attenuation is 102 Hounsfield units and the spleen is 112 Hounsfield units. Gallbladder and bile ducts: Normal. No calcified stones. No ductal dilation. Pancreas: Normal. No ductal dilation. Spleen: Normal. No splenomegaly. Adrenals: Normal. No mass. Kidneys and ureters: Normal. No hydronephrosis. Stomach and bowel: Borderline distention of the stomach with fluid and food. Appendix: A normal appendix is seen. Intraperitoneal space: Unremarkable. No free air. No significant fluid collection. Vasculature: Unremarkable. No abdominal aortic aneurysm. Lymph nodes: Borderline central mesenteric nodes which are nonspecific and not unusual for age. Bladder: The urinary bladder is decompressed but appears grossly normal. Reproductive: Unremarkable as visualized. Bones/joints: Unremarkable. No acute fracture. Soft tissues: Unremarkable. IMPRESSION: 1. There is borderline gastric distention with fluid and food which may reflect recent ingestion. Gastric atony or relative outlet obstruction are not excluded. 2. Borderline central mesenteric nodes which are nonspecific and not unusual for age. 3. Otherwise negative CT abdomen/pelvis. Electronically signed by: Jeronimo Falk On 11/05/2018 22:49:01 PM
[2018-11-05] MEDS ORDERED: DICY10CA13 PO (23:24)
[2018-11-05] MEDS ORDERED: REGL5TAB2 PO (23:24)
[2018-11-05 23:30] VITALS: BP 119/81
== END 2018-11-05 23:31 | disposition home or self-care (01) ==
LOC: M ED 19:54
DX: R10.9 Unspecified abdominal pain (principal); E16.2 Hypoglycemia, unspecified; J45.909 Unspecified asthma, uncomplicated; D64.9 Anemia, unspecified; Z79.899 Other long term (current) drug therapy; Z91.048 Other nonmedicinal substance allergy status
CPT/HCPCS: 74177; 80047; 80048; 80076; 81001; 83690; 84702; 85025; 96361; 96374; 96375; 99284; J1885; J2405; Q9967

== ENCOUNTER 2019-02-25 17:17 | Day surgery (SDC) | payer OTHER ==
[~2019-02-25] VITALS: Ht 165.1 cm; Wt 61.8 kg
[~2019-02-25 17:17] MED LIST changes: +DICY10CA13 PO; +REGL5TAB2 PO; -SERT-155 PO; +SERT50TA29 PO
[2019-02-25 17:50] LABS: HEMATOCRIT 35.5 % (36.0-47.0); HEMOGLOBIN 11.2 g/dl (12.0-15.5); MEAN CORPUSCULAR HEMOGLOBIN 26.5 pg (27.0-33.0); MEAN CORPUSCULAR HGB CONC 31.5 g/dl (32.0-36.5); MEAN CORPUSCULAR VOLUME 84.1 fl (80.0-96.0); PLATELET COUNT, AUTOMATED 281 10^3/uL (150-450); RED BLOOD COUNT 4.22 10^6/uL (4.00-5.40); WHITE BLOOD COUNT 10.4 10^3/uL (4.0-10.0)
[2019-02-25 18:38] LABS: HCG, SERUM QUANTITATIVE 95736 MIU/ML
[2019-02-25 19:55] LABS: CHLAMYDIA DNA AMPLIFICATION NEGATIVE (NEGATIVE); GC DNA AMPLIFICATION NEGATIVE (NEGATIVE)
--- NOTE | 2019-02-25 20:26 | REPVR ---
PROCEDURE INFORMATION: Exam: US First Trimester, Transabdominal Exam date and time: 02/25/2019 7:36 PM Age: 23 years old Clinical indication: complicated by abdominal or pelvic pain; Right lower quadrant; First trimester; Gestational age or lmp: Lmp 12/22/18; ; Additional info: Rlq pain TECHNIQUE: Imaging protocol: Real-time transabdominal obstetrical ultrasound of the maternal pelvis and a first trimester , less than 14 weeks 0 days, with image documentation. COMPARISON: CT ABD/PEL W/IV CONTRAST ONLY 11/05/2018 9:36 PM FINDINGS: GESTATION: Gestation: Single living intrauterine . Heart rate: 149 bpm. Placenta: No subchorionic hemorrhage is seen. Amniotic fluid: Amniotic and chorionic fluid are normal for gestational age. BIOMETRY: Estimated gestational age: 7 weeks 6 days. Austin-Rump length: 1.6 cm. Estimated due date: Estimated date of delivery: 10/08/2019. MATERNAL: Uterus: Unremarkable. Cervix: Unremarkable. Right adnexa: Probable corpus luteum cyst in the right ovary measuring 1.6 cm. Left adnexa: Left ovary and adnexa are unremarkable. Intraperitoneal: No intraperitoneal free fluid. IMPRESSION: Single living intrauterine fetus with estimated gestational age of 7 weeks 6 days. No abnormalities are seen. Electronically signed by: Alistair Reina On 02/25/2019 20:25:54 PM
--- NOTE | 2019-02-25 20:29 | REPVR ---
PROCEDURE INFORMATION: Exam: US Abdomen Limited, Appendix Exam date and time: 02/25/2019 7:36 PM Age: 23 years old Clinical indication: Abdominal pain; Acute; ; Additional info: Rlq pain - ? appy TECHNIQUE: Imaging protocol: Real-time ultrasound of the abdomen with image documentation. Examination was focused on the appendix. COMPARISON: 1ST TRIMESTER US 02/25/2019 7:21 PM FINDINGS: Appendix: The appendix is fluid-filled and mildly dilated at 9 mm. Mild appendiceal wall thickening. Technologist did report pain with compression with the transducer and rebound tenderness in the right lower quadrant over the appendix. Intraperitoneal space: No periappendiceal fluid or other free fluid in the right lower quadrant. IMPRESSION: Dilated appendix concerning for acute appendicitis. No right lower quadrant fluid collection is identified. Electronically signed by: Alistair Reina On 02/25/2019 20:28:47 PM
[2019-02-25] MEDS ORDERED: D5W/LR 1,000 ML IV SCH (20:45)
[2019-02-25] MEDS ORDERED: propofoL 200 MG/20 ML VIAL As Ordered ONE (22:53)
[2019-02-25] MEDS ORDERED: ROCURONIUM BROMIDE 50 MG/5 ML VIAL As Ordered ONE (22:53)
[2019-02-25] MEDS ORDERED: LIDOCAINE 2% INJ 100 MG/5 ML SDV (FOR ANES.) As Ordered ONE (22:53)
[2019-02-25] MEDS ORDERED: fentaNYL 100 MCG/2 ML INJECTION (J3010) As Ordered ONE (22:55)
[2019-02-25] MEDS ORDERED: dexameTHASONE 4 MG/ML 1ML VIAL (J1100) As Ordered ONE (22:56)
[2019-02-25] MEDS ORDERED: ONDANSETRON 4MG/2ML VIAL (J2405) As Ordered ONE (22:56)
[2019-02-25] MEDS ORDERED: BUPIVACAINE HCL 0.25% 30 ML VIAL As Ordered ONE (23:06)
[2019-02-25] MEDS ORDERED: LIDOCAINE 1% SDV INJ 30 ML VIAL As Ordered ONE (23:06)
[2019-02-25] MEDS ORDERED: UNASYN 1.5 GM VIAL As Ordered ONE (23:10)
[2019-02-25] MEDS ORDERED: SUCCINYLCHOLINE 100 MG/5 ML SYRINGE (J0330) As Ordered ONE (23:41)
[2019-02-26] VITALS (7 sets, daily range): BP systolic 94–112; BP diastolic 51–71
[2019-02-26] MEDS ORDERED: fentaNYL 100 MCG/2 ML INJECTION (J3010) As Ordered ONE (00:11)
[2019-02-26] MEDS ORDERED: SUGAMMADEX SODIUM 500 MG/5 ML VIAL (BRIDION) As Ordered ONE (00:14)
[2019-02-26] MEDS ORDERED: ACETAMINOPHEN 1000MG 100ML IV BTL (OFIRMEV) (J0131 PER 10MG) As Ordered ONE (00:21)
[2019-02-26] MEDS ORDERED: LR 1,000 ML IV SCH ×2 (00:29→00:45)
[2019-02-26] MEDS ORDERED: ONDANSETRON 4MG/2ML VIAL (J2405) IV PRN ×2 (00:30→00:45)
[2019-02-26] MEDS ORDERED: ACETAMINOPHEN TAB 650MG DOSE (2X325MG) PO PRN (00:30)
[2019-02-26] MEDS ORDERED: KETOROLAC 30 MG/ML VIAL (J1885) IV PRN (00:30)
[2019-02-26] MEDS ORDERED: PERCOCET 5MG/325MG TAB PO PRN (00:30)
[2019-02-26] MEDS ORDERED: oxyCODONE 5MG TAB PO PRN (00:45)
[2019-02-26] MEDS ORDERED: fentaNYL 100 MCG/2 ML INJECTION (J3010) IV PRN (00:45)
[2019-02-26] MEDS ORDERED: ACET1TAB55 PO (10:13)
[2019-02-26 11:09] LABS: HIV 1&2 SCREEN CENTAUR NEGATIVE (NEGATIVE)
--- NOTE | 2019-03-20 10:42 | ROOPDOC ---
[facility] Report Of Operation Report of Operation DATE OF PROCEDURE: 02/26/19 PREPROCEDURE DIAGNOSES: Acute appendicitis. Early POSTPROCEDURE DIAGNOSES: Mild, early acute appendicitis, early . PROCEDURE: Laparoscopic appendectomy. SURGEON: Marshal Hook MD FACULTY INSTRUCTOR: ANESTHESIA: Gen. anesthesia. ESTIMATED BLOOD LOSS: Approximately 10 mL. COMPLICATIONS: None. SPECIMEN appendix. PROCEDURE NOTE: This is a healthy 23-year-old female with 1 day history of right lower quadrant pain. She is aware that she is . The estimated gestational age of 9 weeks. She is suspected to have early acute appendicitis by ultrasound. She is brought to the OR for diagnostic laparoscopy and appendectomy.. DESCRIPTION OF PROCEDURE: Patient has been given a dose of Unasyn 3 gm perioperatively.Patient was brought to the operating room, placed supine on the table. Sequential compression device placed for DVT prophylaxis. General endotracheal anesthesia started. The abdomen prepped and draped in usual sterile fashion. After a surgical timeout, we began our surgery Entry into the abdomen done through an incision above the umbilicus. Veress needle inserted on a controlled fashion. Intra-abdominal placement confirmed with saline drop technique. CO2 insufflation started to a pressure of 15 mmHg. Using the same incision a 5 mm optical trocar was placed under direct vision of laparoscope. Insertion site was inspected for injury and none was found. She was placed on a Trendelenburg position the right side tilted to about 30 to allow for better visualization of the appendix. Two 5 mm working ports were placed at the suprapubic area and left lower quadrant area under direct vision. I exchanged an 8 mm port at the umbilicus. Operative findings: Uterus is noted to be mildly enlarged but still within the ulnar is consistent with early . A small amount of serous fluid in the pelvis. The appendix is noted only mildly thickened with mild venous congestion consistent with early acute appendicitis. No perforation or infected fluid collections noted. The appendix was located, The Surrounding bowels retracted away from the appendix. This was grasped to pull the base of the appendix into view. The mesoappendix was divided using Harmonic scalpel down to the base. Two Vicryl Endoloops were placed to ligate the appendix at its base then divided with a Harmonic Scalpel the stump cauterized. Stump appears healthy. Appendix was then delivered into an Endo Catch bag. After re-insufflation the surgical site was inspected for hemostasis, The abdomen was deflated. All ports removed. The umbilical fascial defect repaired with 0 Vicryl in a mattress fashion. All skin incisions closed with 4-0 Monocryl in a subcuticular fashion. Steri-Strips and gauze dressing used for wound coverage. Patient was promptly awake and extubated and brought to recovery room stable. All counts of sponges and instruments verified to be correct. MARSHAL HOOK MD Mar 20, 2019 10:42
== END 2019-02-26 11:05 | disposition home or self-care (01) ==
LOC: M ED 17:17 → M SDC 17:18 → ENRESERVTM 23:47 → ENRESERVDT 23:47 → M MS5PR 02-26 01:12 → M SDC 02-26 11:05
PROVIDERS: ATTEND Surgery
DX: O99.611 Diseases of the digestive system complicating pregnancy, first trimester (principal); K35.30 Acute appendicitis with localized peritonitis, without perforation or gangrene; O99.511 Diseases of the respiratory system complicating pregnancy, first trimester; J45.909 Unspecified asthma, uncomplicated; O99.341 Other mental disorders complicating pregnancy, first trimester; F99 Mental disorder, not otherwise specified; O99.331 Smoking (tobacco) complicating pregnancy, first trimester; F17.210 Nicotine dependence, cigarettes, uncomplicated; Z91.048 Other nonmedicinal substance allergy status; Z3A.01 Less than 8 weeks gestation of pregnancy
CPT/HCPCS: 44970; 76705; 76801; 80047; 84702; 85027; 86850; 86900; 86901; 87210; 87389; 87661; 88304; 93976; 96360; 96361; 99284; J0131; J0330; J1100; J2405; J3010

== ENCOUNTER 2019-03-25 15:32 | Emergency (ER) | payer OTHER ==
[~2019-03-25] VITALS: Ht 165.1 cm; Wt 61.9 kg
[~2019-03-25 15:32] MED LIST changes: +ACET1TAB55 PO
[2019-03-25] MEDS ORDERED: RHOGAM 300 MCG (1500 IU) INJ (J2790) IM ONE (16:45)
[2019-03-25 17:01] LABS: BASO % 0.2 % (0.0-1.0); HEMATOCRIT 32.9 % (36.0-47.0); HEMOGLOBIN 10.9 g/dl (12.0-15.5); LYMPH # 1.3 10^3/uL (1.5-5.0); LYMPH % 13.2 % (24.0-44.0); MEAN CORPUSCULAR HEMOGLOBIN 28.2 pg (27.0-33.0); MEAN CORPUSCULAR HGB CONC 33.1 g/dl (32.0-36.5); MONO # 0.6 10^3/uL (0.0-0.8); MONO % 6.4 % (0.0-5.0); NEUTROPHILS % 79.8 % (36.0-66.0); PLATELET COUNT, AUTOMATED 259 10^3/uL (150-450); RED BLOOD COUNT 3.87 10^6/uL (4.00-5.40)
[2019-03-25] MEDS ORDERED: ACETAMINOPHEN TAB 650MG DOSE (2X325MG) PO ONE (17:45)
--- NOTE | 2019-03-25 17:59 | REPVR ---
PROCEDURE INFORMATION: Exam: US First Trimester, Transabdominal Exam date and time: 03/25/2019 5:22 PM Age: 23 years old Clinical indication: Lmp or gestational age (in weeks): 11w6d; Antepartum complications; Bleeding; ; Additional info: Thr ab, 11w6d by US extrapolation TECHNIQUE: Imaging protocol: Real-time transabdominal obstetrical ultrasound of the maternal pelvis and a first trimester , less than 14 weeks 0 days, with image documentation. COMPARISON: 1ST TRIMESTER US 02/25/2019 7:21 PM FINDINGS: GESTATION: Gestation: Intrauterine gestational sac with hypoechoic fluid collection around a portion of this gestational sac posterior and fundal measuring 5.5 x 1.5 x 8.1 cm consistent with subchorionic hemorrhage. Single intrauterine fetus with motion. Heart rate: heartbeat of 168 bpm. Amniotic fluid: Amniotic and coelomic fluid are normal for gestational age. BIOMETRY: [place]-Rump length: [place]-rump length is 5.5 cm suggesting an age of 12 weeks 1 day. MATERNAL: Uterus: The uterus measures 11.1 cm in its cephalocaudad dimension and 7.9 cm in its AP dimension. IMPRESSION: 1. Single live intrauterine fetus with an estimated age of 12 weeks 1 day. 2. Large subchorionic hemorrhage measuring 5.5 x 1.5 x 8.1 cm. Electronically signed by: Jeronimo Falk On 03/25/2019 17:59:26 PM
[2019-03-25 19:01] VITALS: BP 94/54
== END 2019-03-25 19:06 | disposition home or self-care (01) ==
LOC: M ED 15:32
DX: O20.0 Threatened abortion (principal); O20.8 Other hemorrhage in early pregnancy; O36.0110 Maternal care for anti-D [Rh] antibodies, first trimester, not applicable or unspecified; O99.340 Other mental disorders complicating pregnancy, unspecified trimester; F32.9 Major depressive disorder, single episode, unspecified; F43.10 Post-traumatic stress disorder, unspecified; F60.3 Borderline personality disorder; Z3A.12 12 weeks gestation of pregnancy; Z91.048 Other nonmedicinal substance allergy status
CPT/HCPCS: 76801; 85025; 86850; 86900; 86901; 96372; 99283; J2790

== ENCOUNTER 2019-09-07 20:00 | Inpatient (IN) | payer OTHER | END 2019-09-10 08:47 | disposition home or self-care (01) | DRG 807 | LOC: M OBS 20:00 | PROVIDERS: ADMIT Obstetrics & Gynecology; ATTEND Obstetrics & Gynecology | PROC: 3E033VJ Introduction of Other Hormone into Peripheral Vein, Percutaneous Approach (ICD-10-PCS; 2019-09-07) | PROC: 10E0XZZ Delivery of Products of Conception, External Approach (ICD-10-PCS; principal; 2019-09-09) | DX: O42.12 Full-term premature rupture of membranes, onset of labor more than 24 hours following rupture (principal); Z37.0 Single live birth; Z3A.35 35 weeks gestation of pregnancy ==

== ENCOUNTER 2020-03-09 17:48 | Emergency (ER) | payer OTHER ==
[~2020-03-09] VITALS: Ht 165.1 cm; Wt 61.4 kg
[~2020-03-09 17:48] MED LIST changes: +MIRT-62 PO; -REME15TA PO
--- OUTSIDE RECORDS SUMMARY | 2020-03-09 17:55 | CCD ---
Author Author [facility] Organization [facility] Address Unknown Phone Unavailable Care Team Providers Care Tour Conductor Name Role Phone LISA WASSERMAN Unavailable Unavailable Tremaine Cao MD Unavailable Unavailable Tremaine Cao MD Unavailable Unavailable Tremaine Cao MD Unavailable Unavailable Tremaine Cao MD Unavailable Unavailable Tremaine Cao MD Unavailable Unavailable Tremaine Cao MD Unavailable Unavailable Tremaine Cao MD Unavailable Unavailable Tremaine Cao MD Unavailable Unavailable Tremaine Cao MD Unavailable Unavailable Tremaine Cao MD Unavailable Unavailable Tremaine Cao MD Unavailable Unavailable Tremaine Cao MD Unavailable Unavailable Tremaine Cao MD Unavailable Unavailable Tremaine Cao MD Unavailable Unavailable Tremaine Cao MD Unavailable Unavailable Tremaine Cao MD Unavailable Unavailable Tremaine Cao MD Unavailable Unavailable Tremaine Cao MD Unavailable Unavailable Tremaine Cao MD Unavailable Unavailable Tremaine Cao MD Unavailable Unavailable Tremaine Cao MD Unavailable Unavailable Tremaine Cao MD Unavailable Unavailable Tremaine Cao MD Unavailable Unavailable Tremaine Cao MD Unavailable Unavailable Tremaine Cao MD Unavailable Unavailable Tremaine Cao MD Unavailable Unavailable Tremaine Cao MD Unavailable Unavailable VIMAL VERA Unavailable Unavailable Re-disclosure Warning The records that you are about to access may contain information from federally-assisted alcohol or drug abuse programs. If such information is present, then the following federally mandated warning applies: This information has been disclosed to you from records protected by federal confidentiality rules (42 CFR part 2). The federal rules prohibit you from making any further disclosure of this information unless further disclosure is expressly permitted by the written consent of the person to whom it pertains or as otherwise permitted by 42 CFR part 2. A general authorization for the release of medical or other information is NOT sufficient for this purpose. The Federal rules restrict any use of the information to criminally investigate or prosecute any alcohol or drug abuse patient.The records that you are about to access may contain highly sensitive health information, the redisclosure of which is protected by Article 27-F of the [facility] Public Health law. If you continue you may have access to information: Regarding HIV / AIDS; Provided by facilities licensed or operated by the [facility] Office of Mental Health; or Provided by the [facility] Office for People With Developmental Disabilities. If such information is present, then the following [facility] mandated warning applies: This information has been disclosed to you from confidential records which are protected by state law. State law prohibits you from making any further disclosure of this information without the specific written consent of the person to whom it pertains, or as otherwise permitted by law. Any unauthorized further disclosure in violation of state law may result in a fine or long-term sentence or both. A general authorization for the release of medical or other information is NOT sufficient authorization for further disc losure. Encounters Encounter Providers Location Date Indications Data Source(s ) Outpatient 04/03/2019 09:58:00 AM [facility] Outpatient Attender: VIMAL VERAReferrer: Bon pereira MD 03/21/2019 02:46:00 PM EST - 03/21/2019 02:46:00 PM [facility] Outpatient 03/19/2019 03:30:00 PM [facility] Outpatient Attender: VIMAL Calvilloer: Bon pereira MD 03/02/2019 01:38:00 PM EST - 03/02/2019 01:38:00 PM [facility] Outpatient 03/01/2019 03:56:00 PM [facility] Outpatient Attender: LISA WASSERMAN 020 01:52:00 PM EST - 02/16/2019 01:52:00 PM [facility] Insurance Providers Payer name Policy type / Coverage type Policy ID Covered alliance party ID Covered alliance party's relationship to valadez Policy Valadez Plan Information [facility] [id number] [facility] [id number] [facility] O [id number] S [id number] [facility] [place] U[place]VAILABLE 01 UNAVAILABLE [facility] [place] [facility] [place] UNAVAILABLE 01 UNAVAILABLE [facility] [place] [id number] 01 [id number] [facility] [place] [id number] 01 [id number] [facility] [id number] [facility] [id number] [facility] [id number] 2 [id number] Problems, Conditions, and Diagnoses Code Display Name Description Problem Type Effective Dates Data Source(s) F439 Reaction to severe stress, unspecified R eaction to severe stress, unspecified Diagnosis 03/21/2019 02:46:00 PM [facility] Results ID Date Data Source [id number] 09/14/2019 07:05:00 AM EDT [facility] Name Value Range Interpretation Code Description Data Josy rce(s) Supporting Document(s) Varicella Zoster IgG 900 index Immune >165 [facility] Negative <135 Equivocal 135 - 165 Positive >165 A positive result generally indicates exposure to the pathogen or administration of specific immunoglobulins, but it is not indication of active infection or stage of disease. ID Date Data Source [id number] 09/14/2019 07:05:00 AM EDT [facility] Name Value Range Interpretation Code Description Data Josy rce(s) Supporting Document(s) Please note [facility] The date recorded on the requisition ind icates the sample(s) receivedwere greater than 72 hours old upon arrival in our laboratory. Procedure
[2020-03-09] MEDS ORDERED: ONDANSETRON 4MG/2ML VIAL IV ONE (18:30)
[2020-03-09] MEDS ORDERED: PANTOPRAZOLE 40MG VIAL (C9113 PER 1) IV ONE (18:30)
[2020-03-09] MEDS ORDERED: NS 1,000 ML IV ONE (18:30)
[2020-03-09 18:39] LABS: BASO % 0.4 % (0.0-1.0); HEMATOCRIT 38.6 % (36.0-47.0); HEMOGLOBIN 12.6 g/dl (12.0-15.5); LYMPH # 1.1 10^3/uL (1.5-5.0); LYMPH % 20.1 % (24.0-44.0); MEAN CORPUSCULAR HEMOGLOBIN 29.6 pg (27.0-33.0); MEAN CORPUSCULAR HGB CONC 32.6 g/dl (32.0-36.5); MEAN CORPUSCULAR VOLUME 90.8 fl (80.0-96.0); MONO # 0.3 10^3/uL (0.0-0.8); MONO % 4.7 % (0.0-5.0); NEUTROPHILS # 4.2 10^3/uL (1.5-8.5); NEUTROPHILS % 74.3 % (36.0-66.0); PLATELET COUNT, AUTOMATED 263 10^3/uL (150-450); RED BLOOD COUNT 4.25 10^6/uL (4.00-5.40); WHITE BLOOD COUNT 5.6 10^3/uL (4.0-10.0)
[2020-03-09 19:03] LABS: HCG, SERUM QUALITATIVE NEGATIVE (NEGATIVE)
[2020-03-09 19:06] LABS: ALBUMIN 3.7 GM/DL (3.2-5.2); ALT/SGPT 24 U/L (12-78); BILIRUBIN,DIRECT < 0.1 MG/DL (0.0-0.2); BILIRUBIN,TOTAL 0.3 MG/DL (0.2-1.0); BLOOD UREA NITROGEN 11 MG/DL (7-18); CALCIUM LEVEL 8.7 MG/DL (8.5-10.1); CARBON DIOXIDE LEVEL 30 MEQ/L (21-32); CHLORIDE LEVEL 108 MEQ/L (98-107); CREATININE FOR GFR 0.81 MG/DL (0.55-1.30); GLOMERULAR FILTRATION RATE > 60.0 (>60); GLUCOSE, FASTING 97 MG/DL (70-100); LIPASE 41 U/L (73-393); POTASSIUM SERUM 3.9 MEQ/L (3.5-5.1); SODIUM LEVEL 142 MEQ/L (136-145); TOTAL PROTEIN 8.1 GM/DL (6.4-8.2)
--- OUTSIDE RECORDS SUMMARY | 2020-03-09 19:13 | CCD ---
Author Author [facility] Organization [facility] Address Unknown Phone Unavailable Care Team Providers Care Marketing Strategy Manager Name Role Phone LISA WASSERMAN Unavailable Unavailable [...] is protected by Article 27-F of the [facility] Public Health law. If you continue you may have access to information: Regarding HIV / AIDS; Provided by facilities licensed or operated by the [facility] Office of Mental Health; or Provided by the [facility] Office for People With Developmental Disabilities. If such information is present, then the following [facility] mandated warning applies: This information has been [...] law may result in a fine or mcc sentence or both. A general authorization for the release of medical or other information is NOT sufficient authorization for further disc losure. Encounters Encounter Providers Location Date Indications Data Source(s ) Outpatient 04/03/2019 09:58:00 AM [facility] Out[facility] Attender: VIMAL VERAReferrer: Bon pereira MD 03/21/2019 02:46:00 PM EST - 03/21/2019 02:46:00 PM [facility] Outpatient 03/19/2019 03:30:00 PM [facility] Outpatient Attender: VIMAL Calvilloer: Bon pereira MD 03/02/2019 01:38:00 PM EST - 03/02/2019 01:38:00 PM [facility] Outpatient 03/01/2019 03:56:00 PM [facility] Outpatient Attender: LISA WASSERMAN 020 01:52:00 PM EST - 02/16/2019 01:52:00 PM [facility] Insurance Providers Payer name Policy type / Coverage type Policy ID Covered democrat ID Covered democrat's relationship to valadez Policy Valadez Plan Information [facility] [id number] [facility] [id number] [facility] O [id number] S [id number] [facility] [place] UNAVAILABLE 01 UNAVAILABLE [facility] [place] [facility] [place] UNAVAILABLE 01 UNAVAILABLE [facility] [place] [id number] 01 [id number] [facility] [place] [id number] 01 [id number] [facility] [id number] [facility] [id number] [facility] [id number] 2 [id number] Problems, Conditions, and Diagnoses Code Display Name Description Problem Type Effective Dates Data Source(s) F439 Reaction to severe stress, unspecified R eaction to severe stress, unspecified Diagnosis 03/21/2019 02:46:00 PM [facility] Results ID Date Data Source [id number] 09/14/2019 07:05:00 AM EDT [facility] Name Value Range Interpretation Code Description Data Josy rce(s) Supporting Document(s) Varicella Zoster IgG 900 index Immune >165 [facility] Negative <135 Equivocal 135 - 165 Positive >165 A positive result generally indicates exposure to the pathogen or administration of specific immunoglobulins, but it is not indication of active infection or stage of disease. ID Date Data Source [id number] 09/14/2019 07:05:00 AM EDT [facility] Name Value Range Interpretation Code Description Data Josy rce(s) Supporting Document(s) Please note [facility] The date recorded on the requisition ind icates the sample(s) receivedwere greater than 72 hours old upon arrival in our laboratory. Procedure
[2020-03-09] MEDS ORDERED: ISOVUE-370 76% 100ML VIAL As Ordered ONE (19:24)
--- NOTE | 2020-03-09 20:01 | REPVR ---
PROCEDURE INFORMATION: Exam: CT Abdomen And Pelvis With Contrast Exam date and time: 03/09/2020 7:31 PM Age: 24 years old Clinical indication: Abdominal pain; Additional info: Luq abd pain, vomiting TECHNIQUE: Imaging protocol: Computed tomography of the abdomen and pelvis with contrast. Radiation optimization: All CT scans at this facility use at least one of these dose optimization techniques: automated exposure control; mA and/or kV adjustment per patient size (includes targeted exams where dose is matched to clinical indication); or iterative reconstruction. Contrast material: ISO 370; Contrast volume: 100 ml; Contrast route: INTRAVENOUS (IV); COMPARISON: CT ABD/PEL W/IV CONTRAST ONLY 11/05/2018 9:36 PM FINDINGS: Liver: Unremarkable. No mass. Gallbladder and bile ducts: Unremarkable. No calcified stones. No ductal dilation. Pancreas: Unremarkable. No ductal dilation. Spleen: Unremarkable. No splenomegaly. Adrenal glands: Normal. No mass. Kidneys and ureters: Unremarkable. No stones. No hydronephrosis. Stomach and bowel: Unremarkable. No obstruction. No mucosal thickening. Appendix: No evidence of appendicitis. Intraperitoneal space: Unremarkable. No free air. No significant fluid collection. Vasculature: Unremarkable. No abdominal aortic aneurysm. Lymph nodes: Unremarkable. No enlarged lymph nodes. Urinary bladder: Unremarkable as visualized. Reproductive: A vaginal tampon is present. The uterus and adnexa are unremarkable. Bones/joints: No acute fracture. Soft tissues: Unremarkable. IMPRESSION: No acute abnormality. Electronically signed by: John Martel On 03/09/2020 20:01:28 PM
[2020-03-09] MEDS ORDERED: ZOFR4TAB16 PO (20:06)
[2020-03-09 20:27] VITALS: BP 118/80
== END 2020-03-09 20:34 | disposition home or self-care (01) ==
LOC: M ED 17:48
DX: R11.2 Nausea with vomiting, unspecified (principal); F17.200 Nicotine dependence, unspecified, uncomplicated; Z91.048 Other nonmedicinal substance allergy status; Z79.899 Other long term (current) drug therapy
CPT/HCPCS: 74177; 80048; 80076; 83690; 84703; 85025; 93041; 96361; 96374; 99285; C9113; J2405; Q9967

== ENCOUNTER 2020-05-31 03:33 | Emergency (ER) | payer OTHER ==
[~2020-05-31] VITALS: Ht 165.1 cm; Wt 72.7 kg
[~2020-05-31 03:33] MED LIST changes: +ZOFR4TAB16 PO
[2020-05-31] MEDS ORDERED: LORazepam 2 MG/ML VIAL IM ONE (04:00)
[2020-05-31] MEDS ORDERED: HALOPERIDOL 5MG/ML VIAL (J1630 PER 1) IM ONE (04:00)
[2020-05-31] MEDS ORDERED: diphenhydrAMINE 50MG/ML VIAL (J1200) IM ONE (04:00)
[2020-05-31 05:41] LABS: HEMATOCRIT 40.9 % (36.0-47.0); HEMOGLOBIN 13.4 g/dl (12.0-15.5); MEAN CORPUSCULAR HEMOGLOBIN 29.6 pg (27.0-33.0); MEAN CORPUSCULAR HGB CONC 32.8 g/dl (32.0-36.5); MEAN CORPUSCULAR VOLUME 90.3 fl (80.0-96.0); PLATELET COUNT, AUTOMATED 304 10^3/uL (150-450); RED BLOOD COUNT 4.53 10^6/uL (4.00-5.40); WHITE BLOOD COUNT 5.7 10^3/uL (4.0-10.0)
[2020-05-31 05:45] LABS: HCG, SERUM QUALITATIVE NEGATIVE (NEGATIVE)
[2020-05-31 05:54] LABS: ACETAMINOPHEN LEVEL < 2.0 UG/ML (10.0-30.0); ALBUMIN 4.1 GM/DL (3.2-5.2); ALT/SGPT 25 U/L (12-78); BILIRUBIN,DIRECT < 0.1 MG/DL (0.0-0.2); BILIRUBIN,TOTAL 0.2 MG/DL (0.2-1.0); BLOOD UREA NITROGEN 16 MG/DL (7-18); CALCIUM LEVEL 9.4 MG/DL (8.5-10.1); CARBON DIOXIDE LEVEL 23 MEQ/L (21-32); CHLORIDE LEVEL 110 MEQ/L (98-107); CREATININE FOR GFR 0.86 MG/DL (0.55-1.30); GLOMERULAR FILTRATION RATE > 60.0 (>60); GLUCOSE, FASTING 102 MG/DL (70-100); POTASSIUM SERUM 4.3 MEQ/L (3.5-5.1); SALICYLATE LEVEL 3.7 MG/DL (5.0-30.0); SODIUM LEVEL 141 MEQ/L (136-145); TOTAL PROTEIN 8.4 GM/DL (6.4-8.2)
[2020-05-31 06:01] LABS: AMPHETAMINES LEVEL URINE NEGATIVE (NEGATIVE); BARBITURATES URINE NEGATIVE (NEGATIVE); BENZODIAZEPINES URINE NEGATIVE (NEGATIVE); CANNABINOIDS URINE NEGATIVE (NEGATIVE); COCAINE METABOLITE URINE NEGATIVE (NEGATIVE); METHADONE URINE NEGATIVE (NEGATIVE); OPIATES URINE NEGATIVE (NEGATIVE); PHENCYCLIDINE URINE NEGATIVE (NEGATIVE)
[2020-05-31 14:18] VITALS: BP 126/66
== END 2020-05-31 14:19 | disposition home or self-care (01) ==
LOC: M ED 03:33
DX: F10.10 Alcohol abuse, uncomplicated (principal); Y90.1 Blood alcohol level of 20-39 mg/100 ml; F33.9 Major depressive disorder, recurrent, unspecified; F41.9 Anxiety disorder, unspecified; Z91.048 Other nonmedicinal substance allergy status; F17.210 Nicotine dependence, cigarettes, uncomplicated
CPT/HCPCS: 36415; 80048; 80076; 80143; 80307; 82077; 84443; 84703; 85027; 96372; 99285; J1200; J1630; J2060

== ENCOUNTER → 2020-12-15 | Outpatient (REF) | payer OTHER ==
[2020-12-15 19:39] LABS: GC DNA AMPLIFICATION NEGATIVE (NEGATIVE)
== END ==
LOC: M LAB REF 16:27
PROVIDERS: ATTEND Physician Assistant Medical
DX: N89.8 Other specified noninflammatory disorders of vagina (principal)

== ENCOUNTER 2022-02-09 15:07 | Emergency (ER) | payer OTHER ==
[~2022-02-09] VITALS: Ht 165.1 cm; Wt 70.6 kg
[2022-02-09 15:07] VITALS: BP 129/78
[~2022-02-09 15:07] MED LIST changes: +AMOX875T2 PO
== END 2022-02-09 16:09 | disposition left against medical advice (07) ==
LOC: M ED 15:07
DX: Z53.21 Procedure and treatment not carried out due to patient leaving prior to being seen by health care provider (principal)

== ENCOUNTER 2022-02-17 03:26 | Inpatient (IN) | payer OTHER ==
[~2022-02-17] VITALS: Ht 165.1 cm; Wt 68.2 kg
[2022-02-17 04:03] LABS: HEMATOCRIT 40.3 % (36.0-47.0); HEMOGLOBIN 13.5 g/dl (12.0-15.5); MEAN CORPUSCULAR HEMOGLOBIN 31.3 pg (27.0-33.0); MEAN CORPUSCULAR HGB CONC 33.5 g/dl (32.0-36.5); MEAN CORPUSCULAR VOLUME 93.5 fl (80.0-96.0); PLATELET COUNT, AUTOMATED 277 10^3/uL (150-450); RED BLOOD COUNT 4.31 10^6/uL (4.00-5.40); WHITE BLOOD COUNT 6.3 10^3/uL (4.0-10.0)
[2022-02-17 04:24] LABS: HCG, SERUM QUALITATIVE NEGATIVE (NEGATIVE)
[2022-02-17 04:25] LABS: ETHYL ALCOHOL (ETHANOL) 0.152 % (0.000-0.010)
[2022-02-17 04:26] LABS: BILIRUBIN,DIRECT 0.1 MG/DL (<0.4)
[2022-02-17 04:27] LABS: ACETAMINOPHEN LEVEL < 2.0 UG/ML (10.0-20.0); SALICYLATE LEVEL < 3.0 MG/DL (<30)
[2022-02-17 04:29] LABS: THYROID STIMULATING HORMONE 1.913 uIU/ML (0.55-4.78)
[2022-02-17 04:31] LABS: ALBUMIN 3.7 G/DL (3.2-5.2); ALKALINE PHOSPHATASE 94 U/L (46-116); ALT/SGPT 27 U/L (7.0-40); AST/SGOT 16 U/L (<34); BILIRUBIN,TOTAL 0.3 MG/DL (0.3-1.2); BLOOD UREA NITROGEN 10 MG/DL (9-23); CALCIUM LEVEL 8.8 MG/DL (8.5-10.1); CARBON DIOXIDE LEVEL 26 MMOL/L (20-31); CHLORIDE LEVEL 108 MMOL/L (98-107); CREATININE FOR GFR 1.03 MG/DL (0.55-1.30); GLOMERULAR FILTRATION RATE > 60.0 (>60); GLUCOSE, FASTING 94 MG/DL (60-100); POTASSIUM SERUM 4.4 MMOL/L (3.5-5.1); SODIUM LEVEL 142 MMOL/L (136-145); TOTAL PROTEIN 7.4 G/DL (5.7-8.2)
[2022-02-17 04:32] LABS: RSV AMPLIFICATION NEGATIVE (NEGATIVE)
[2022-02-17 04:58] LABS: CANNABINOIDS URINE NEGATIVE (NEGATIVE); METHADONE URINE NEGATIVE (NEGATIVE); OPIATES URINE NEGATIVE (NEGATIVE); PHENCYCLIDINE URINE NEGATIVE (NEGATIVE)
[2022-02-17 04:59] LABS: AMPHETAMINES LEVEL URINE NEGATIVE (NEGATIVE); BARBITURATES URINE NEGATIVE (NEGATIVE); BENZODIAZEPINES URINE NEGATIVE (NEGATIVE); COCAINE METABOLITE URINE NEGATIVE (NEGATIVE)
[2022-02-17] MEDS ORDERED: ACETAMINOPHEN TAB 650MG DOSE (2X325MG) PO ONE (05:10)
[2022-02-17] MEDS ORDERED: HOME MED LIST COMPLETE! XX SCH (05:50)
[2022-02-18] MEDS ORDERED: traZODone 50 MG TAB PO PRN (13:50)
[2022-02-18] MEDS ORDERED: ACETAMINOPHEN TAB 650MG DOSE (2X325MG) PO PRN (13:50)
[2022-02-18] MEDS ORDERED: MAALOX 30 ML SUSP *UDC PO PRN (13:50)
[2022-02-18] MEDS ORDERED: MOM 30ML SUSPENSION UDC PO PRN (13:50)
[2022-02-18] MEDS ORDERED: LORazepam 2 MG TAB PO PRN (13:50)
[2022-02-18] MEDS ORDERED: diphenhydrAMINE 25MG CAP PO PRN (13:50)
[2022-02-18] MEDS ORDERED: IBUPROFEN 400MG TAB PO PRN (13:50)
[2022-02-18] MEDS: FOLIC ACID 1MG TAB PO SCH (14:33)
[2022-02-18] MEDS: THIAMINE 100 MG TAB PO SCH ×2 (14:33→21:12)
[2022-02-18] MEDS: MULTIVITAMINS/MINERALS THERAP 1 TAB PO SCH (14:33)
[2022-02-18] MEDS ORDERED: NICOTINE POLACRILEX 2 MG GUM PO PRN (16:10)
[2022-02-18 17:17] VITALS: BP 114/82
[2022-02-18 17:18] VITALS: BP 114/82
[2022-02-19 06:24] VITALS: BP 110/64
[2022-02-19 06:25] VITALS: BP 110/64
[2022-02-19] MEDS ORDERED: NICOTINE 21MG/24HR 1 EA TRANSDERMAL TD SCH (09:00)
[2022-02-19] MEDS: MULTIVITAMINS/MINERALS THERAP 1 TAB PO SCH (09:03)
[2022-02-19] MEDS: FOLIC ACID 1MG TAB PO SCH (09:03)
[2022-02-19] MEDS: THIAMINE 100 MG TAB PO SCH (09:03)
[2022-02-19] MEDS ORDERED: NICO2GUM PO (11:24)
== END 2022-02-19 14:12 | disposition home or self-care (01) | DRG 882 ==
LOC: EDBD 03:26 → M ED 03:26 → M ED INP 02-18 13:48 → M PSY 02-18 15:46
PROVIDERS: ADMIT Student in an Organized Health Care Education/Training Program; ATTEND Psychiatry & Neurology Psychiatry
DX: F43.23 Adjustment disorder with mixed anxiety and depressed mood (principal); R45.851 Suicidal ideations; F10.14 Alcohol abuse with alcohol-induced mood disorder; F17.200 Nicotine dependence, unspecified, uncomplicated; F10.129 Alcohol abuse with intoxication, unspecified; F41.9 Anxiety disorder, unspecified; F60.3 Borderline personality disorder; F60.2 Antisocial personality disorder; Z91.018 Allergy to other foods